=== PATIENT | male | born 1960 | race Caucasian/White ===

== ENCOUNTER 2018-01-10 11:14 | Observation (INO) | payer OTHER ==
--- NOTE | 2018-01-10 11:35 | EDPHY ---
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 Today he was talking to his business machine mechanic on the phone at 10:30 a.m. And he said that he"stumbled over my words,"and"was repeating myself." During this time you could clearly think of what he wanted to say but was unable to speak clearly. Not associated with vertigo headache double vision or weakness or numbness in extremities. Lasted about 10 min and now is completely resolved. He did have a feeling of not seeing normally prior to his symptoms about an hour earlier when looking at a computer screen, but when he switched his vision to a paper document his vision went back to normal. REVIEW OF SYSTEMS: Eye: no change in vision ENT: no sore throat Cardiac: no chest pain or syncope Pulmonary: no cough or SOB Abdomen: no vomiting, diarrhea, abdominal pain Musculoskeletal: no back pain or neck pain Skin: no rash Neuro: Chronic left-sided facial droop after Fajardo's palsy when he was younger. Constitutional: no fever : no urinary symptoms A comprehensive 10 point review of systems is otherwise negative aside from elements mentioned in the history of present illness. PAST MEDICAL HISTORY: Includes Fajardo's palsy, kidney stones, gout, cataract surgery Social history: Nonsmoker, works in land development General Appearance: Alert and conversant, cooperative. Eyes: No scleral icterus. Pupils equal reactive extraocular motion intact ENT, Mouth: Normal mucous membranes. Respiratory: Normal respiratory effort, breath sounds equal, lungs are clear to auscultation. Cardiovascular: Regular rate and rhythm. Gastrointestinal: Abdomen is soft and non tender. Neurological: Alert, face asymmetric, normal motor and sensory in extremities. Normal [id number] and no pronator drift. Fluent speech. Old left facial droop which does involve the forehead. Skin: Warm and dry, no rashes. Musculoskeletal: No peripheral edema. Psychiatric: Not agitated. Emergency Department course/MDM: High suspicion for TIA, although symptoms have 100% resolved at this time. CT, CTA, EKG, labs, admission for workup of TIA. Discussed with the patient and consented. 1316: normal head CT, [place]. Constitutional: Initial Vital Signs Temperature (C) 36.9 C 01/10/18 11:15 Heart Rate 89 01/10/18 11:15 Respiratory Rate 18 01/10/18 11:15 Blood Pressure 175/71 H 01/10/18 11:15 O2 Sat (%) 96 01/10/18 11:15 O2 Delivery Mode Room Air Allergies/Adverse Reactions: No Known Allergies Allergy (Unverified 11/07/11 11:32) Home Medications: Medication Instructions Recorded No Medications [NO HOME 1 [place] [facility] [place] Medical Decision Making - Diagnostics Imaging Results: Imaging Impressions Head CT 01/10/18 11:59 Impression: No acute intracranial process. Findings and recommendations discussed with ROMANA XIONG at 1312 hour, 2017. Head CTA 01/10/18 12:00 Impression: 1. Minimal calcified plaque at the carotid bulb bilaterally without encroachment upon the lumen. No evidence of stenosis or intraluminal thrombus. 2. Minimal calcified plaque at the carotid siphon bilaterally without stenosis. Otherwise, normal CT angiogram of the [place], as detailed above. Note: All calculations were performed using NASCET criteria. Findings discussed with Romana Xiong M.D. at 13:33 hour, 01/10/2018. Neck CTA 01/10/18 12:00 Impression: 1. Minimal calcified plaque at the carotid bulb bilaterally without encroachment upon the lumen. No evidence of stenosis or intraluminal thrombus. 2. Minimal calcified plaque at the carotid siphon bilaterally without stenosis. Otherwise, normal CT angiogram of the [place], as detailed above. Note: All calculations were performed using NASCET criteria. Findings discussed with Romana Xiong M.D. at 13:33 hour, 01/10/2018. Imaging: Discussed imaging studies w/ order desk caller Radiologist Differential Diagnosis: Differential for speech difficulty considered including but not limited to atypical migraine, TIA, seizure, hypoglycemia Consult/Admit Bed Type: [place] [id number] for [place] - Data Points Laboratory Results: Laboratory Results 01/10/18 11:25 01/10/18 11:25 01/10/18 01/10/18 01/10/18 11:28 11:25 11:25 WBC RBC Hgb POC Hgb 16.7 gm/dL gm/dL (13.7-17.5) Hct POC Hct 49 % % (40-51) MCV MCH MCHC RDW Plt Count MPV Neut % (Auto) Lymph % (Auto) Tillman % (Auto) Eos % (Auto) Baso % (Auto) Nucleat RBC Rel Count Absolute Neuts (auto) Absolute Lymphs (auto) Absolute Monos (auto) Absolute Eos (auto) Absolute Basos (auto) Absolute Nucleated RBC Immature Gran % Immature Gran # PT 13.5 SEC SEC (12.0-15.0) INR 1.01 (0.83-1.16) POC Sodium 139 mEq/L mEq/L (135-145) Sodium 136 mEq/L mEq/L (135-145) POC Potassium 3.8 mEq/L mEq/L (3.3-5.0) Potassium 4.2 mEq/L mEq/L (3.3-5.0) POC Chloride 103 mEq/L mEq/L (97-110) Chloride 104 mEq/L mEq/L (97-110) Carbon Dioxide 20 mEq/l L mEq/l (22-31) Anion Gap 12 mEq/L mEq/L (8-16) POC BUN 17 mg/dL mg/dL (7-23) BUN 17 mg/dL mg/dL (7-23) Creatinine 1.1 mg/dL mg/dL (0.7-1.3) POC Creatinine 1.2 mg/dL mg/dL (0.7-1.3) Estimated GFR > 60 Glucose 115 mg/dL H mg/dL (70-100) POC Glucose 118 mg/dL H mg/dL (70-100) Calcium 9.6 mg/dL mg/dL (8.5-10.4) 01/10/18 11:25 WBC 7.86 10^3/uL 10^3/uL (3.80-9.50) RBC 5.43 10^6/uL 10^6/uL (4.40-6.38) Hgb 15.9 g/dL g/dL (13.7-17.5) POC Hgb Hct 46.8 % % (40.0-51.0) POC Hct MCV 86.2 fL fL (81.5-99.8) MCH 29.3 pg pg (27.9-34.1) MCHC 34.0 g/dL g/dL (32.4-36.7) RDW 13.3 % % (11.5-15.2) Plt Count 167 10^3/uL 10^3/uL (150-400) MPV 10.7 fL fL (8.7-11.7) Neut % (Auto) 53.2 % % (39.3-74.2) Lymph % (Auto) 36.3 % % (15.0-45.0) Tillman % (Auto) 8.5 % % (4.5-13.0) Eos % (Auto) 1.3 % % (0.6-7.6) Baso % (Auto) 0.4 % % (0.3-1.7) Nucleat RBC Rel Count 0.0 % % (0.0-0.2) Absolute Neuts (auto) 4.19 10^3/uL 10^3/uL (1.70-6.50) Absolute Lymphs (auto) 2.85 10^3/uL 10^3/uL (1.00-3.00) Absolute Monos (auto) 0.67 10^3/uL 10^3/uL (0.30-0.80) Absolute Eos (auto) 0.10 10^3/uL 10^3/uL (0.03-0.40) Absolute Basos (auto) 0.03 10^3/uL 10^3/uL (0.02-0.10) Absolute Nucleated RBC 0.00 10^3/uL 10^3/uL (0-0.01) Immature Gran % 0.3 % % (0.0-1.1) Immature Gran # 0.02 10^3/uL 10^3/uL (0.00-0.10) PT INR POC Sodium Sodium POC Potassium Potassium POC Chloride Chloride Carbon Dioxide Anion Gap POC BUN BUN Creatinine POC Creatinine Estimated GFR Glucose POC Glucose Calcium Point of Care Test Results: Chemistry 01/10/18 11:28 POC Sodium 139 mEq/L mEq/L (135-145) POC Potassium 3.8 mEq/L mEq/L (3.3-5.0) POC Chloride 103 mEq/L mEq/L (97-110) POC BUN 17 mg/dL mg/dL (7-23) POC Creatinine 1.2 mg/dL mg/dL (0.7-1.3) POC Glucose 118 mg/dL H mg/dL (70-100) ISTAT H&H 01/10/18 11:28 POC Hgb 16.7 gm/dL gm/dL (13.7-17.5) POC Hct 49 % % (40-51) Departure - Departure Disposition: [facility] In[facility] Acute Clinical Impression: Transient cerebral ischemia Qualifiers: Transient cerebral ischemia type: unspecified Qualified Code(s): G45.9 - Transient cerebral ischemic attack, unspecified Condition: Good
[2018-01-10 12:08] LABS: PLATELET COUNT 167 10^3/uL (150-400)
[2018-01-10 12:10] LABS: INR 1.01 (0.83-1.16); PROTIME(PATIENT) 13.5 SEC (12.0-15.0)
[2018-01-10] MEDS ORDERED: IOPAMIDOL (ISOVUE 370) 100 ML BTL IV ONE (12:11)
--- NOTE | 2018-01-10 13:38 | CPEKG ---
Test Reason : OPEN Blood Pressure : / mmHG Vent. Rate : 078 BPM Atrial Rate : 078 BPM P-R Int : 187 ms QRS Dur : 101 ms QT Int : 424 ms P-R-T Axes : 030 -31 022 degrees QTc Int : 484 ms Sinus rhythm Left axis deviation Anterior infarct, old Confirmed by Naseem Ortiz ([id number]) on 01/10/2018 1:37:37 PM Referred By: Confirmed By:Naesem Ortiz
[2018-01-10] MEDS ORDERED: PERFLUTREN LIPID MICROSPHERES 1.1 MG/ML VIAL IV ONE (15:15)
--- NOTE | 2018-01-10 15:32 | GHP ---
DATE OF ADMISSION: 01/10/2018 HISTORY OF PRESENT ILLNESS: The patient is a pleasant 58-year-old gentleman with a history of gout a nd Fajardo palsy, who presents with some word-finding difficulties. He played a rugby tournament over and was hit in the head a number of times. He did not seek care. Today, he was talking o n the phone and he had some jumbled speech. He was not dysarthric. It was more that just the words were coming out in inaccurate orders. He said he had no numbness or weakness in his face or at least no new numbness or weakness in his face. He has some chronic left-sided facial droop and left-sided tingling. He did not have any seizure-like activity. He did not have alcohol this morning. He did not take new medications. The symptoms resolved on their own and he subsequently sought care. He denies fever, chills, palpitations, cough, sputum, nausea, vomiting, diarrhea. REVIEW OF SYSTEMS: Complete 10-point review of systems conducted, negative except as noted in the HP I. PAST MEDICAL HISTORY: 1. Hyperlipidemia. His last LDL was 125 in September 2016. 2. Gout. SOCIAL HISTORY: Lives locally. 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 Drinks alcohol. Nonsmoker. FAMILY HISTORY: There is no early vascular disease. ALLERGIES: No known drug allergies. MEDICATIONS: P.r.n. indomethacin and ibuprofen. PHYSICAL EXAMINATION: VITAL SIGNS: Temp 36.8, blood pressure 156/95, pulse 83, breathing 21 times a minute, 94% on room air. GENERAL: No acute distress. HEENT: Sclerae anicteric. Oropharynx clear . Mucous membranes are moist. NECK: Supple without lymphadenopathy or JVD. LUNGS: Clear to auscu ltation bilaterally. HEART: S1, S2. ABDOMEN: Soft, nontender, nondistended. LOWER EXTREMITIES: Without edema. Calves are nontender. SKIN: Without rash. NEUROLOGIC: Reveals a left-sided facial droop that is subtle but clearly there and includes his forehead. Upper extremity and lower extremi ty strength is 5/5 bilaterally. Sensation is intact bilaterally. Cerebellar testing is intact and s peech is fluent. He is able to name an object and follow a command. LABORATORY DATA: White count 7.8, hematocrit 47, platelets are 167,000. INR is 1. Sodium 136, pota ssium 4.2, chloride 104, bicarb 20, BUN 17, creatinine 1.1, glucose 115. EKG interpreted by me shows sinus at 78 with borderline left axis deviation, no ST or T-wave changes. CT of the head shows no a cute intracranial process. CTA of the head and neck reveals minimal calcified plaque in the carotid bulb bilaterally with encroachment on the lumen. Minimal calcified plaque in the carotid siphon. Th ere is mild calcified plaque encroachment without narrowing. I discussed the case with Dr. Naseem Ortiz . ASSESSMENT/PLAN: A 58-year-old gentle with a possible transient ischemic attack. 1. Transient ischemic attack. This may have been sequela of postconcussive syndrome following his [employer] games. It could also represent a neurovascular event. He certainly has risk factors of hyperli pidemia. We will do the standard stroke workup of echocardiogram without bubble, telemetry monitorin g, lipid panel and A1c. I will perform an MRI of his head. 2. Hyperlipidemia. The patient is probably a candidate for a statin. 3. Left axis deviation suggestive of possible hypertension. Will follow his blood pressure while he re. DISPOSITION: Observation status. /[id number]/MODL
--- NOTE | 2018-01-10 16:22 | ASMTCMCOM ---
CM Note CM Note Notes: Patient admitted for stroke-like symptoms which have fortunately resolved. He will have the full stroke work-up including EKG, tele monitoring, A1C, and lipid panel. PT/OT/ATMOSPHERIC PHYSICIST will also see him. Patient is normally independent, employed, and . I doubt he will have discharge needs, but Case Management available if this changes. Date Signed: 01/10/2018 04:22 PM Electronically Signed By:Gertrude Carrington RN
[2018-01-10] MEDS: ASPIRIN 81 MG CHEWABLE TAB PO SCH (16:26)
--- NOTE | 2018-01-10 17:44 | ECHO ---
[email or web address] [address] Main: [phone] Fax: Transthoracic Echocardiogram Name: NIRANJAN TEJADA MR#: [id number] Study Date: 01/10/2018 Study Time: 02:59 PM Date of : 1960 Age: 58 year(s) Height: 185.4 cm (73 in.) Weight: 126.55 kg (279 lb.) BSA: 2.48 m2 Gender: Male Examination: Echo with Definity Indication: Ischemic Stroke w/o TPA Image Quality: Technically Difficult Contrast: 0.165 mg I.V. dose of Definity was administered to improve endocardial border definition. Requested by: Henry Gonzalez BP: 156 mmHg/95 mmHg Heart Rate: Rhythm: Indication: Ischemic Stroke w/o TPA Procedure Staff Medical Technologist Chief: Lynette Gaona [facility] Reading Physician: Chandler Garcia MD Requesting Provider: Conclusions: Normal size left ventricle. No LV hypertrophy. Normal global systolic LV function. The ejection fraction is visually estimated to be 60 %. No regional wall motion abnormality. Unable to assess diastolic dysfunction. Normal size right ventricle. Normal RV function. The left atrium is normal in size. The right atrium is normal in size. The mitral valve is normal in appearance and function. Mild mitral valve regurgitation is present. No mitral stenosis is present. The aortic valve is tri-leaflet. There is no significant aortic valve regurgitation. No aortic valve stenosis is present. The tricuspid valve is normal in appearance and function. Trivial to mild tricuspid valve regurgitation. The pulmonic valve is normal in appearance and function. The aorta is normal. Normal size aortic root measuring 3.1 cm. Normal size ascending aorta measuring 3.1 cm. No pericardial effusion. No pleural effusion. Limited windows due to patient body habitus. This is a relatively poor quality study given the patient's body habitus. A cause for the patient's stroke is not identified on the basis of this study. If a cardiac source of embolus is strongly suspected consider SUMMER to evaluate further. Patient: NIRANJAN TEJADA Study Date: 01/10/2018 Page 1 of 3 02:59 PM Measurements: Chambers Valvular Assessment AV/MV Valvular Assessment TV/PV Normal Normal Normal Name Value Range Name Value Range Name Value Range Ao Tiffanie (2D): 3.1 cm (1.4 cm-2.6 AV Vmax: 1.36 m/s (1 m/s-1.7 PV Vmax: 0.81 m/s (0.6 m/s-0.9 cm) m/s) m/s) IVSd (2D): 1.1 cm (0.6 cm-1.1 AV maxP mmHg ( - ) PV PGmax: 3 mmHg ( - ) cm) AV meanP mmHg ( - ) LVDd (2D): 5.4 cm (4.2 cm-5.9 LVOT Vmax: 0.89 m/s (0.7 m/s-1.1 cm) m/s) LVDs (2D): 3.9 cm (2.1 cm-4 CYRUS (Vmax): 3.0 cm2 ( - ) cm) CYRUS (VTI): 2.9 cm ( - ) LVPWd (2D): 1.0 cm (0.6 cm-1 MV E Vmax: 0.52 m/s ( - ) cm) MV A Vmax: 0.80 m/s ( - ) LVOTd 2.4 cm 2.4 cm mm MV E/A: 0.65 ( - ) LVEF (BP): 64 % (>=55 %) MV PHT: 0.098 s ( - ) Visual EF: 60 % MVA (PHT): 2.2 s ( - ) RVDd(2D): 3.2 cm (1.9 cm-3.8 cmmm) Continued Measurements: Chambers Valvular Assessment AV/MV Name Value Name Value LADs: 3.9 cm MV DecTime: 285 m/s RA Area: 13.6 cm2 MV E/E' Septal: 8.50 MV E/E' Lateral: 7.30 Additional Vessels Name Value Ao Ascendin.1 cm Findings: Left Ventricle: Normal size left ventricle. No LV hypertrophy. Normal global systolic LV function. The ejection fraction is visually estimated to be 60 %. No regional wall motion abnormality. Unable to assess diastolic dysfunction. Right Ventricle: Normal size right ventricle. Normal RV function. Left Atrium: The left atrium is normal in size. Right Atrium: The right atrium is normal in size. Mitral Valve: The mitral valve is normal in appearance and function. Mild mitral valve regurgitation is present. No mitral stenosis is present. Aortic Valve: The aortic valve is tri-leaflet. There is no significant aortic valve regurgitation. No aortic valve stenosis is present. Tricuspid Valve: The tricuspid valve is normal in appearance and function. Trivial to mild tricuspid valve regurgitation. Pulmonic Valve: The pulmonic valve is normal in appearance and function. Aorta: The aorta is normal. Normal size aortic root measuring 3.1 cm. Normal size ascending aorta measuring 3.1 cm. Pericardium: No pericardial effusion. No pleural effusion. Patient: NIRANJAN TEJADA Study Date: 01/10/2018 Page 2 of 3 02:59 PM Exam Comments: Limited windows due to patient body habitus. (No Signature Object) Patient: NIRANJAN TEJADA Study Date: 01/10/2018 Page 3 of 3 02:59 PM [id number]
[2018-01-11 07:40] VITALS: BP 143/96
[2018-01-11] MEDS: ASPIRIN 81 MG CHEWABLE TAB PO SCH (09:03)
--- NOTE | 2018-01-11 09:26 | HOSPPROG ---
Hospitalist Progress Note Assessment/Plan: 58 yo M w possible TIA neg workup declines statin home see dc summary Subjective: no events tele Objective: Vital Signs Temp Pulse Resp BP Pulse Ox 36.4 C 74 14 143/96 H 92 01/11/18 07:39 01/11/18 07:39 01/11/18 07:39 01/11/18 07:39 01/11/18 07:39 01/10/18 01/11/18 01/12/18 05:59 05:59 05:59 Intake Total 650 Balance 650 PT 13.5 SEC (12.0-15.0) 01/10/18 11:25 INR 1.01 (0.83-1.16) 01/10/18 11:25 - Physical Exam Constitutional: no apparent distress, appears nourished Eyes: PERRL, anicteric sclera Ears, Nose, Mouth, Throat: moist mucous membranes, hearing normal Cardiovascular: regular rate and rhythym, systolic murmur Respiratory: no respiratory distress, no rales or rhonchi Gastrointestinal: normoactive bowel sounds, soft, non-tender abdomen Genitourinary: no bladder fullness, No soares in urethra Skin: warm, normal color Musculoskeletal: full muscle strength ICD10 Worksheet Patient Problems: Problems Problem Status Onset Transient cerebral ischemia Acute
--- NOTE | 2018-01-11 10:10 | GDS ---
DISCHARGE DIAGNOSES: 1. Possible transient ischemic attack. 2. History of Fajardo's palsy. 3. Hyperlipidemia. Please see admission history and physical by Dr. Henry Gonzalez. The patient presented with some spe ech difficulty that was transient in nature. He had recently played some rugby games and hit his hea d a couple of times. He had no other focal weakness or numbness. Workup revealed a CTA of the head and neck showing mild vascular disease without occlusion. Head CT was unremarkable. MRI showed micr ovascular ischemic gliosis and mild atrophy. Echocardiogram showed mild mitral regurgitation, but ot herwise unremarkable. There were no telemetry events. His LDL was 123. I advised a statin; he decl ined. He is going to follow up with his primary care physician. The statin has been recommended in the past. He does agree to take an aspirin. He is discharged home today. /[id number]/MODL
--- NOTE | 2018-01-11 11:30 | NEUROPROG ---
Assessment: HOSPITAL NEUROLOGY CONSULT REQUESTING: Sadi Gonzalez MD REASON: TIA HPI: 58 year old right-handed man with a history of Fajardo's palsy, HLD and gout who presented to the ED yesterday with language trouble. States he was talking on the phone yesterday and at 10:15AM had sudden onset of mixing up the order of words in a sentence. Symptoms lasted only a minute. Work colleagues noted his face was drooping, however, patient notes he has a chronic left facial weakness from prior Fajardo's palsy. He did not experience any new weakness, sensory changes, visual disturbance, slurred speech, gait change, [place], hearing change, vertigo. Was advised by work colleagues to come to the ED. He has no prior history of stroke/TIA. Notes his PCP has previously recommended statin for HLD but he has declined. States he was playing rugby this weekend and had multiple head injuries. He has a history of multiple head injuries in the past from playing different sports. ROS: As per the HPI, otherwise a complete 12 point ROS was performed and is negative ALLERGIES AND MEDS: As recorded in the EMR - reviewed and reconciled PFSH: As per the intake H&P by Dr. Gonzalez from 01/10/2018 EXAM: VS reviewed in EMR GEN: WDWN sitting on edge of bed in NAD HEENT: NCAT, sclera anicteric, conjunctiva not injected, MMM, oropharynx clear, no scalp tenderness NECK: supple, nontender, no meningismus CV: RRR s1 s2 wo m/r/c/g. Carotid pulses 2+ wo bruit NEURO: MS: awake, alert, oriented to all spheres. Speech nondysarthric. No language disturbance. Follows commands. Attends to both sides. Recent/remote memory grossly intact. Mood euthymic. Good fund of knowledge. CN: pupils 3mm round and reactive. Unable to visualize fundi. VFF. Primary gaze centered. Full ocular motility. Facial sensation preserved. Face symmetric. Hearing grossly intact to finger rub. Palatoglossal movements intact. Shoulder shrug and head turn strong. MOTOR: normal bulk/tone. No adventitial movements. Full power throughout. SENSORY: intact to all modalities throughout. No extinction. COORD: no ataxia FN/HS. Libia preserved. Romberg neg. REFLEX: plantars down. No clonus. DTRS 2/4. GAIT: rises unassisted. Narrow base. Intact stride length/heel strike/toe lift /arm swing. Turns with 2 steps. Able to tandem without difficulty. DATA REVIEW: Labs reviewed in EMR PERSONALLY INTERPRETED RESULTS AND DATA: MRI brain wo - few scattered T2 FLAIR hyperintensities in the white matter most reflective of chronic microvascular ischemic change. Nothing acute. CTA head/neck - calcific lesions in the carotid bulbs and carotid siphons without any hemodynamically significant stenosis. LDL 123 A1c 5.6 TTE - preserved EF, no mass visible IMPRESSION AND RECOMMENDATIONS: // POSSIBLE TIA Patient with a one minute episode of mixing up the order of words. No other symptoms. Has vascular risk of HLD. Noted be hypertensive in hospital. Could have been a TIA to the left hemisphere. Also may be symptomatic from head injury this weekend. In any event, would optimize vascular risk factors as if this were a TIA. - ASA 81mg daily - statin daily for goal LDL < 100 - he declined - goal normotension - advised he purchase a home BP cuff and take random BPs daily to present to PCP on follow up - cont goal normoglycemia - stroke education - discussed with him and focused on activating EMS for any stroke-like symptoms - follow up PCP within 1 week - sign off Objective: Vital Signs Temp Pulse Resp BP Pulse Ox 36.4 C 74 14 143/96 H 92 01/11/18 07:39 01/11/18 07:39 01/11/18 07:39 01/11/18 07:39 01/11/18 07:39 01/10/18 01/11/18 01/12/18 05:59 05:59 05:59 Intake Total 650 Balance 650 PT 13.5 SEC (12.0-15.0) 01/10/18 11:25 INR 1.01 (0.83-1.16) 01/10/18 11:25 Allergies/Adverse Reactions: No Known Allergies Allergy (Unverified 11/07/11 11:32)
--- NOTE | 2018-01-11 16:15 | ASMTLACE ---
[facility] Length of stay for Answers: 2 days current admission Acuity / Level of Answers: No Care: Did the patient have an inpatient admission? Comorbidities - select Answers: Other Notes: Fajardo's palsy all that apply # of Emergency department Answers: 1-2 visits in the last 6 months Score: 4 Date Signed: 01/11/2018 04:14 PM Electronically Signed By:YOAN Harris
--- NOTE | 2018-01-11 16:17 | ASMTCMCOM ---
CM Note CM Note Notes: Pt medically stable for d/c, no CM d/c needs identified. Date Signed: 01/11/2018 04:16 PM Electronically Signed By:YOAN Harris
== END 2018-01-11 10:03 | disposition home or self-care (01) ==
LOC: F3N 14:08
PROVIDERS: ADMIT Internal Medicine; ATTEND Internal Medicine
DX: R47.9 Unspecified speech disturbances (principal); E78.5 Hyperlipidemia, unspecified; R29.810 Facial weakness; M10.9 Gout, unspecified; Z87.442 Personal history of urinary calculi
CPT/HCPCS: 70450; 70496; 70498; 70551; 93005; 97161; 97165; 99285; C8929; G0378; 82435-PO; 82565-PO; 82947-PO; 84132-PO; 84295-PO; 84520-PO; 85014-PO; Q9957; Q9967

== ENCOUNTER 2018-02-16 16:22 | Emergency (ER) | payer OTHER ==
[2018-02-16] MEDS ORDERED: ASPIRIN 81 MG CHEWABLE TAB PO ONE (16:45)
--- NOTE | 2018-02-16 16:47 | CPEKG ---
Test Reason : OPEN Blood Pressure : / mmHG Vent. Rate : 082 BPM Atrial Rate : 082 BPM P-R Int : 194 ms QRS Dur : 101 ms QT Int : 410 ms P-R-T Axes : 040 -11 030 degrees QTc Int : 479 ms Sinus rhythm Confirmed by Leland Chilel ([id number]) on 02/16/2018 4:46:46 PM Referred By: Confirmed By:Leland Chilel
--- NOTE | 2018-02-16 16:48 | EDPHY ---
H & P Stated Complaint: chest pressure, sent bt PCP Time Seen by Provider: 02/16/18 16:38 HPI/ROS: CHIEF COMPLAINT: Chest tightness HISTORY OF PRESENT ILLNESS: The patient is a 58-year-old man who comes to the emergency department complaining of tightness in his chest for 2-3 minutes each night for the last week. He is asymptomatic today. He presented to his primary Dr. Robert Jimenez today who obtained an EKG that was unremarkable and an outpatient troponin. He planned on working him up as an outpatient but then the patient made a comment of "I hope I do not in my sleep". Dr. Jimenez took this to mean that the patient had a sense of impending doom. The patient denies this and states that he does not feel like he is going to that he was just vocalizing a thought. He tells me that he does not have a feeling of impending doom. He denies shortness of breath. He plays rugby and hockey and states that his symptoms did not get worse while playing. He states that the only last for few minutes right after he lays down to bed and usually improve with stretching. No recent fevers or viral illness. No nausea vomiting or GI symptoms. He was hospitalized a month ago for rule out CVA which turned out most likely to be concussion syndrome. At that time he had a normal EKG and normal echocardiogram Severity: Mild Modifying factors: Resolve after a few minutes REVIEW OF SYSTEMS: Constitutional: denies: chills, fever, recent illness, recent injury EENTM: denies: blurred vision, double vision, nose congestion Respiratory: denies: cough, shortness of breath Cardiac: See HPI denies: chest pressure, irregular heart rate, lightheadedness , palpitations Gastrointestinal/Abdominal: denies: abdominal pain, diarrhea, nausea, vomiting, blood streaked stools Genitourinary: denies: dysuria, frequency, hematuria, pain Musculoskeletal: denies: joint pain, muscle pain Skin: denies: lesions, rash, jaundice, bruising Neurological: denies: headache, numbness, paresthesia, tingling, dizziness, weakness Hematologic/Lymphatic: denies: blood clots, easy bleeding, easy bruising Immunologic/allergic: denies: HIV/AIDS, transplant 10 systems reviewed and negative except as noted EXAM: GENERAL: Well-appearing, well-nourished and in no acute distress. HEAD: Atraumatic, normocephalic. EYES: Pupils equal round and reactive to light, extraocular movements intact, sclera anicteric, conjunctiva are normal. ENT: TMs normal, nares patent, oropharynx clear without exudates. Moist mucous membranes. NECK: Normal range of motion, supple without lymphadenopathy or JVD. LUNGS: Breath sounds clear to auscultation bilaterally and equal. No wheezes rales or rhonchi. HEART: Regular rate and rhythm without murmurs, rubs or gallops. ABDOMEN: Soft, nontender, normoactive bowel sounds. No guarding, no rebound. No masses appreciated. BACK: No CVA tenderness, no spinal tenderness, step-offs or deformities EXTREMITIES: Normal range of motion, no pitting or edema. No clubbing or cyanosis. NEUROLOGICAL: Cranial nerves II through XII grossly intact. Normal speech, normal gait. 5/5 strength, normal movement in all extremities, normal sensation , normal reflexes PSYCH: Normal mood, normal affect. SKIN: Warm, dry, normal turgor, no visible rashes or lesions. Source: Patient Exam Limitations: No limitations - Personal History Current Tetanus Diphtheria and Acellular Pertussis (TDAP): Yes - Medical/Surgical History Hx Asthma: No Hx Chronic Respiratory Disease: No Hx Diabetes: No Hx Cardiac Disease: No Hx Renal Disease: No Hx Cirrhosis: No Hx Alcoholism: No Hx HIV/AIDS: No Hx Splenectomy or Spleen Trauma: No Other PMH: kidney stones, gout, [place], knee surgery, cataract surgery - Family History Significant Family History: No pertinent family hx - Social History Smoking Status: Never smoked Alcohol Use: Sober Drug Use: None Constitutional: Initial Vital Signs Temperature (C) 36.6 C 02/16/18 16:28 Heart Rate 86 02/16/18 16:28 Respiratory Rate 16 02/16/18 16:28 Blood Pressure 160/88 H 02/16/18 16:28 O2 Sat (%) 95 02/16/18 16:28 O2 Delivery Mode Room Air Allergies/Adverse Reactions: No Known Allergies Allergy (Unverified 11/07/11 11:32) Home Medications: Medication Instructions Recorded Aspirin [Aspirin 81mg (*)] 81 mg PO DAILY tab.chew 01/11/18 Medical Decision Making - Diagnostics EKG Interpretation: An EKG obtained and was read and documented in trace view. Please see trace view for full reading and report. Sinus rhythm, no acute ischemic changes similar to previous EKGs Imaging Results: Imaging Impressions Chest X-Ray 02/16/18 16:45 Impression: No acute pulmonary disease. Imaging: Discussed imaging studies w/ order caller Radiologist ED Course/Re-evaluation: We discussed the x-ray and lab results as well as EKG results. They are all very reassuring. The patient is asymptomatic. He only has symptoms briefly the at night when he 1st lays down. It is not worsened by exertion. He is eager to go. He declines further workup or repeat testing. We discussed indications for returning. Differential Diagnosis: Partial list of the Differential diagnosis considered include but were not limited to; chest wall pain, acute coronary disease, PE, GERD and although unlikely based on the history and physical exam, I also considered pneumonia, pneumothorax, dissection, biliary disease, peptic ulcer. I discussed these differential diagnoses and the plan with the patient as well as the usual and expected course. The patient understands that the diagnosis is provisional and that in medicine we are not always correct and that further workup is often warranted. Usual and customary warnings were given. All of the patient's questions were answered. The patient was instructed to return to the emergency department should the symptoms at all worsen or return, otherwise to followup with the physician as we discussed. - Data Points Laboratory Results: Laboratory Results 02/16/18 16:46 02/16/18 16:46 02/16/18 02/16/18 02/16/18 16:48 16:46 16:46 WBC RBC Hgb Hct MCV MCH MCHC RDW Plt Count MPV Neut % (Auto) Lymph % (Auto) Sherman % (Auto) Eos % (Auto) Baso % (Auto) Nucleat RBC Rel Count Absolute Neuts (auto) Absolute Lymphs (auto) Absolute Monos (auto) Absolute Eos (auto) Absolute Basos (auto) Absolute Nucleated RBC Immature Gran % Immature Gran # PT 13.2 SEC SEC (12.0-15.0) INR 0.98 (0.83-1.16) APTT 26.3 SEC SEC (23.0-38.0) D-Dimer 0.46 ug/mLFEU ug/mLFEU (0.00-0.50) Sodium 138 mEq/L mEq/L (135-145) Potassium 4.1 mEq/L mEq/L (3.3-5.0) Chloride 106 mEq/L mEq/L (97-110) Carbon Dioxide 21 mEq/l L mEq/l (22-31) Anion Gap 11 mEq/L mEq/L (6-14) BUN 20 mg/dL mg/dL (7-23) Creatinine 1.2 mg/dL mg/dL (0.7-1.3) Estimated GFR > 60 Glucose 100 mg/dL mg/dL (70-100) Calcium 9.5 mg/dL mg/dL (8.5-10.4) Total Bilirubin 0.4 mg/dL mg/dL (0.1-1.4) Conjugated Bilirubin 0.3 mg/dL mg/dL (0.0-0.5) Unconjugated Bilirubin 0.1 mg/dL mg/dL (0.0-1.1) AST 28 IU/L IU/L (17-59) ALT 30 IU/L IU/L (21-72) Alkaline Phosphatase 90 IU/L IU/L (38-126) POC Troponin I 0.00 ng/mL ng/mL (0.00-0.08) Total Protein 7.1 g/dL g/dL (6.3-8.2) Albumin 4.2 g/dL g/dL (3.5-5.0) Lipase 133 IU/L IU/L (23-300) 02/16/18 16:46 WBC 7.04 10^3/uL 10^3/uL (3.80-9.50) RBC 5.07 10^6/uL 10^6/uL (4.40-6.38) Hgb 15.1 g/dL g/dL (13.7-17.5) Hct 44.7 % % (40.0-51.0) MCV 88.2 fL fL (81.5-99.8) MCH 29.8 pg pg (27.9-34.1) MCHC 33.8 g/dL g/dL (32.4-36.7) RDW 12.8 % % (11.5-15.2) Plt Count 158 10^3/uL 10^3/uL (150-400) MPV 10.0 fL fL (8.7-11.7) Neut % (Auto) 54.0 % % (39.3-74.2) Lymph % (Auto) 35.1 % % (15.0-45.0) Sherman % (Auto) 9.1 % % (4.5-13.0) Eos % (Auto) 1.4 % % (0.6-7.6) Baso % (Auto) 0.3 % % (0.3-1.7) Nucleat RBC Rel Count 0.0 % % (0.0-0.2) Absolute Neuts (auto) 3.80 10^3/uL 10^3/uL (1.70-6.50) Absolute Lymphs (auto) 2.47 10^3/uL 10^3/uL (1.00-3.00) Absolute Monos (auto) 0.64 10^3/uL 10^3/uL (0.30-0.80) Absolute Eos (auto) 0.10 10^3/uL 10^3/uL (0.03-0.40) Absolute Basos (auto) 0.02 10^3/uL 10^3/uL (0.02-0.10) Absolute Nucleated RBC 0.00 10^3/uL 10^3/uL (0-0.01) Immature Gran % 0.1 % % (0.0-1.1) Immature Gran # 0.01 10^3/uL 10^3/uL (0.00-0.10) PT INR APTT D-Dimer Sodium Potassium Chloride Carbon Dioxide Anion Gap BUN Creatinine Estimated GFR Glucose Calcium Total Bilirubin Conjugated Bilirubin Unconjugated Bilirubin AST ALT Alkaline Phosphatase POC Troponin I Total Protein Albumin Lipase Medications Given: Discontinued Medications Aspirin (Aspirin) 324 mg PO EDNOW ONE Stop: 02/16/18 16:46 Last Admin: 02/16/18 16:59 Dose: 324 mg Point of Care Test Results: Chemistry 02/16/18 16:48 POC Troponin I 0.00 ng/mL ng/mL (0.00-0.08) Departure - Departure Disposition: Home, Routine, Self-Care Clinical Impression: Brief chest pressure Condition: Fair Instructions: Chest Pain (ED) Referrals: Tai Jimenez, [Primary Care Provider] - 2-3 days, call for appt.
[2018-02-16 16:56] LABS: PLATELET COUNT 158 10^3/uL (150-400)
[2018-02-16 17:07] LABS: INR 0.98 (0.83-1.16); PROTIME(PATIENT) 13.2 SEC (12.0-15.0)
[2018-02-16 18:31] VITALS: BP 156/83
== END 2018-02-16 18:30 | disposition home or self-care (01) ==
DX: R07.89 Other chest pain (principal)
CPT/HCPCS: 84484-PO